=== PATIENT | male | born 1980 | race Caucasian/White ===

== ENCOUNTER 2018-06-14 07:56 | Day surgery (SDC) | payer BC ==
[~2018-06-14] VITALS: Ht 170.2 cm; Wt 124.7 kg
[~2018-06-14 07:56] MED LIST: ATENOLOL100 MG PO; ATENOLOL50 MG PO; DEBROX6.5 % AU; EPIPEN0.3 MG IM; FLONASE NASAL50 MCG; GAS-X80 MG OR; LISINOPRIL5 MG PO; MEDDOSEPAK PO; OMEPRAZOLE20 MG PO; PRILOSEC40 MG PO; SALICYLIC ACID EX; ZESTRIL/PRI20 MG/TAB PO; ZESTRIL40 MG PO; ZITHROMAX500 MG PO
[2018-06-14 09:20] VITALS: BP 105/59
== END 2018-06-14 09:39 | disposition home or self-care (01) | DRG 394 ==
LOC: ENDO 07:56 → ORM 12:00
PROVIDERS: ATTEND Surgery
PROC: 0DJD8ZZ Inspection of Lower Intestinal Tract, Via Natural or Artificial Opening Endoscopic (ICD-10-PCS; principal; 2018-06-14)
DX: K64.8 Other hemorrhoids (principal); I10 Essential (primary) hypertension; K62.5 Hemorrhage of anus and rectum

== ENCOUNTER 2018-09-14 03:07 | Emergency (ER) | payer BC ==
[~2018-09-14] VITALS: Ht 170.2 cm; Wt 122.0 kg
[2018-09-14 03:41] LABS: HEMOGLOBIN 15.8 g/dl (14.0-18.0); IMMATURE GRANULOCYTES 0.6 % (0.0-5.0); MEAN CELL VOLUME 88.3 fL CALC (80.0-100.0); MEAN CORPUSCULAR HGB 30.3 pG CALC (26.0-32.0); MEAN CORPUSCULAR HGB CONC 34.3 g/L CALC (32.0-36.0); NEUT# 5.07 thou/uL (1.82-7.42); RED BLOOD COUNT 5.21 mill/uL (4.70-6.10)
[2018-09-14 03:42] LABS: URINE BILIRUBIN - DIPSTICK NEGATIVE (NEGATIVE); URINE BLOOD DIPSTICK TRACE-INTACT (NEGATIVE); URINE CLARITY CLEAR; URINE COLOR YELLOW; URINE GLUCOSE - DIPSTICK NEGATIVE (NEGATIVE); URINE KETONE NEGATIVE (NEGATIVE); URINE LEUK ESTERASE NEGATIVE (NEGATIVE); URINE NITRITE - DIPSTICK NEGATIVE (Negative); URINE PH 5.5 (4.5-8.0); URINE PROTEIN - DIPSTICK TRACE mg/dL (NEG-TRACE); URINE SPECIFIC GRAVITY >=1.030; URINE UROBILINOGEN - DIPSTICK 0.2 E.U./dL (0.2)
[2018-09-14 03:55] LABS: ALBUMIN 4.4 g/dL (3.2-5.0); ALKALINE PHOSPHATASE 117 u/l (38-126); AMYLASE 38 u/l (30-110); ANION GAP 16 (6-22 (CALC)); BILIRUBIN, TOTAL 0.9 mg/dL (0.0-1.4); BUN 10 mg/dL (9-20); BUN/CREATININE RATIO 15 (12-20 (CALC)); CARBON DIOXIDE 23 mmol/l (22-30); CHLORIDE 110 mmol/l (95-108); CREATININE 0.7 mg/dL (0.7-1.3); GFR > 60 ML/MIN (>=60 (CALC)); GFR FOR AFR.AMER. > 60 ML/MIN (>=60 (CALC)); LIPASE 133 u/l (23-300); POTASSIUM 3.9 mmol/l (3.5-5.1); SGOT/AST 29 u/l (17-59); SODIUM 145 mmol/l (137-146); TOTAL PROTEIN 7.8 g/dL (6.3-8.2)
[2018-09-14] MEDS ORDERED: TAMSULOSIN0.4 MG PO (05:13)
[2018-09-14] MEDS ORDERED: LORTAB 1010 MG PO (05:13)
[2018-09-14 05:24] VITALS: BP 132/84
== END 2018-09-14 05:23 | disposition home or self-care (01) | DRG 694 ==
LOC: ED 03:07
PROVIDERS: Emergency Medicine
DX: N13.2 Hydronephrosis with renal and ureteral calculous obstruction (principal); Z87.442 Personal history of urinary calculi; R11.2 Nausea with vomiting, unspecified; R10.31 Right lower quadrant pain

== ENCOUNTER 2022-11-01 08:05 | Day surgery (SDC) | payer BC ==
[~2022-11-01] VITALS: Ht 170.2 cm; Wt 117.9 kg
[~2022-11-01 08:05] MED LIST changes: +LORTAB 1010 MG PO; +NORVASC5 M1 PO; +TAMSULOSIN0.4 MG PO; +UROCIT K PO
[2022-11-01 09:39] VITALS: BP 129/86
== END 2022-11-01 09:55 | disposition home or self-care (01) | DRG 395 ==
LOC: ENDO 08:05 → ORM 11:10 → ENDO 11:10 → ORM 11:40
PROVIDERS: ATTEND Internal Medicine Gastroenterology
PROC: 0DJD8ZZ Inspection of Lower Intestinal Tract, Via Natural or Artificial Opening Endoscopic (ICD-10-PCS; principal; 2022-11-01)
DX: K64.8 Other hemorrhoids (principal); I10 Essential (primary) hypertension